=== PATIENT | female | born 1980 | race Caucasian/White ===

== ENCOUNTER 2024-04-30 11:10 | Outpatient (REF) | payer MEDICAID, SELFPAY ==
[2024-04-30 14:08] LABS: MANUAL DIFF FLAG NO
[2024-04-30 14:18] LABS: Basophils Percent Auto 0.3 % (0-2); Eosinophils Absolute Auto 0.2 X10*3/uL (0.0-0.4); Eosinophils Percent Auto 2.6 % (0-4); Hematocrit 44.1 % (37.0-47.0); Hemoglobin 15.5 g/dl (12.0-16.0); Imm Gran Abs Auto 0.03 X10*3/uL (0.00-0.03); Imm Gran Pct Auto 0.3 % (0.0-0.4); Lymphocytes Absolute Auto 2.8 X10*3/uL (1.2-4.9); Lymphocytes Percent Auto 31.6 % (20-40); Mean Corpuscular HGB Conc 35.1 g/dl (31.0-35.0); Mean Corpuscular Hemoglobin 32.4 pg (27.0-33.0); Mean Corpuscular Volume 92.1 fL (80.0-98.0); Mean Platelet Volume 9.7 fL (9.4-12.3); Monocytes Absolute Auto 0.5 X10*3/uL (0.1-1.2); Monocytes Percent Auto 5.5 % (2-11); Neutrophils Absolute Auto 5.3 x10*3/uL (2.0-8.3); Neutrophils Percent Auto 59.7 % (45-73); Platelet Count 310 X10*3/uL (160-400); Red Blood Count 4.79 X10*6/uL (4.20-5.50); White Blood Count 8.8 X10*3/uL (4.8-10.8)
[2024-04-30 14:26] LABS: Estimated Average Glucose 97 mg/dL; Hemoglobin A1C 127.3311 umol/L; Total Hemoglobin (HGBA1C) 4026.2945 umol/L
[2024-04-30 14:35] LABS: Alanine Aminotransferase 46 U/L (0-31); Albumin Level 3.9 g/dL (3.5-5.0); Alkaline Phosphatase 96 U/L (39-117); Anion Gap 11 (12-20); Aspartate Amino Transferase 31 U/L (5-31); Bilirubin Direct 0.3 mg/dL (0.0-0.5); Bilirubin Total 0.5 mg/dL (0.0-1.0); Blood Urea Nitrogen 11 mg/dL (9-16); Calcium 9.6 mg/dL (8.4-10.2); Carbon Dioxide 32 mmol/L (22-29); Chloride 103 mmol/L (96-108); Cholesterol 228 mg/dL (<200); Estimated Glomerular Filt Rate > 60; Glucose Fasting 92 mg/dL (60-99); HDL Cholesterol 47 mg/dL (>40); LDL Cholesterol Calculated 126 mg/dL (<100); Sodium 142 mmol/L (135-145); Total Protein 6.7 g/dL (6.5-8.0); Triglycerides 275 mg/dL (<150)
[2024-04-30 14:52] LABS: TSH reflex Free T4 1.52 uIU/mL (0.32-4.0); Vitamin D 25-OH Total 93.3 ng/mL (>30)
[2024-05-01 04:35] LABS: HIV AB/AG Nonreactive (Nonreactive); HIV Num 1 0.05 S/CO (0.00-0.99); ~HepC Num1 0.07 S/CO (0.00-0.79); ~Hepatitis C Antibody Nonreactive (Nonreactive)
[2024-05-01 07:17] LABS: CT PCR NOT DETECTED (Not Detect.); NG PCR NOT DETECTED (Not Detect.)
== END 2024-04-30 11:11 | disposition home or self-care (01) ==
LOC: HO.CHCLDS 11:10
PROVIDERS: Visit Provider Pediatrics
DX: Z71.3 Dietary counseling and surveillance (principal); Z71.82 Exercise counseling; Z23 Encounter for immunization; E66.813 Obesity, class 3; Z68.43 Body mass index [BMI] 50.0-59.9, adult; E66.01 Morbid (severe) obesity due to excess calories; E55.9 Vitamin D deficiency, unspecified
CPT/HCPCS: 36415; 80048; 80061; 80076; 82306; 83036; 84443; 85025; 86803; 87389; 87491; 87591

== ENCOUNTER 2024-05-29 17:38 | Outpatient (REF) | payer MEDICAID, SELFPAY ==
[2024-05-30 10:43] LABS: HPV 16,18/45 See PAP report
== END 2024-05-29 17:39 | disposition home or self-care (01) ==
LOC: HO.CHCLNP 17:38
PROVIDERS: Visit Provider Pediatrics
DX: Z01.419 Encounter for gynecological examination (general) (routine) without abnormal findings (principal)
CPT/HCPCS: 87624; 88175

== ENCOUNTER 2024-07-08 10:01 | Outpatient (REF) | payer MEDICAID, SELFPAY ==
--- OUTSIDE RECORDS SUMMARY | 2024-07-08 10:46 | XMS_ITS | Encounter Summary ---
Author Organization [employer] Address [address] [place] [address] Care Team Providers Care Horseshoer Name Role Phone Nanette Neumann MD Primary Care Provider [phone] Encounter Details Date Type Department Care Team (Latest Contact Info) Description 07/08/2024 Travel Social History Tobacco Use Types Packs/Day Years Used Date Smoking Tobacco: Never Passive Smoke Exposure: Never Smokeless Tobacco: Never Depression Answer Date Recorded Patient Health Questionnaire-9 Score 0 07/08/2024 Patient Health Questionnaire-9 Score 0 07/08/2024 Last PHQ-9: Questionnaire Data Not on file 0 07/08/2024 Housing Stability Answer Date Recorded What is your housing situation today? I have holden burch 04/30/[address] you li ve. Do you have problems with any of the following? None of the above 04/30/2024 Food Insecurity Answer Date Recorded Within the past 12 months, y ou worried that your food would run out before you got money to buy more: Never True 04/30/2024 Within the past 12 months,th e food you bought just didn't last and you didn't have enough money to get more: Never True Transportation Answer Date Recorded In the past 12 months, has l ack of transportation kept you from medical appts, meetings, work or from getting things needed for daily living? No 04/30/2024 Utilities Answer Date Recorded In the past 12 months, has t he electric, gas, oil or water company threatened to shut off services in your home? No 04/30/2024 Depression Answer Date Recorded Patient Health Questionnaire-2 Score 0 07/08/2024 Internet Access Answer Date Recorded Internet Access Q1 Yes 04/30/2024 Internet Access Q2 Not on file 04/30/2024 Comments Unknown Sex and Gender Information Value Date Recorded Sex Assigned at Female 04/10/2022 10:14 AM EDT Legal Sex Female 10:14 AM EDT Gender Identity Female 04/10/2022 10:14 AM EDT Sexual Orientation Straight 04/10/2022 10 :14 AM EDT documented as of this encounter Plan of Treatment Not on file documented as of this encounter Visit Diagnoses Not on filedocumented in this encounter Additional Health Concerns Assessment Noted Time PHQ-9 Depression Total Score: 0 07/08/19 25 9:43 AM EST documented as of this encounter Care Teams Horseshoer Relationship Specialty Start Date End Date Nanette Neumann MD [address] [place] [address] PCP - General Family Medicine 06/11/18 documented as of this encounter
--- OUTSIDE RECORDS SUMMARY | 2024-07-08 10:46 | XMS_ITS | Encounter Summary ---
Author Organization [employer] Address [address] [facility] 7t [place] [address] Care Team Providers Care Word Processor Name Role Phone Nanette Neumann MD Primary Care Provider [phone] Encounter Details Date Type Department Care Team ([facility] st Contact Info) Description 07/08/2024 9:15 AM EST Office Visit 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 (CMS/HCC); Mild persistent asthma without complication; Hypertriglyceridemia; Screening for colon cancer; Colon cancer screening Social History Tobacco Use Types Packs/Day Years [...] AM EDT documented as of this encounter Last Filed Vital Signs Vital Sign Reading Time Taken Comments Blood Pressure 136/70 07/08/2024 9:16 AM EST Pulse 72 07/08/2024 9:16 AM EST Temperature 36.2 ??C (97.2 ??F) 07/08/2024 9:16 AM ES T Respiratory Rate 20 07/08/2024 9:16 AM EST Oxygen Saturation - - Inhaled Oxygen Concentration - - Weight 118 kg (260 lb) 07/08/2024 9:16 AM EST Height 152.4 cm (5') 07/08/2024 9:16 AM EST Body Mass Index 50.78 07/08/2024 9:16 AM EST documented in this encounter Progress Notes * Nanette Neumann MD - 07/08/2024 9:15 AM EST Subjective Patient ID: Federica Hansen is a 44 y.o. female who presents for a PE. Federica is a 44-year-old patient of mine here for her annual physical exam. She works at [employer].Needs a TB test, as well as a work PA note and MMR titers. She just had her WILDLIFE BIOLOGIST exam visit with me in April of last year which was normal. She is currently perimenopausal with minimal symptoms. Her last period was 2 months ago. Currently on no control as she does not have a partner. Does not have any new complaints today except for acute left great toe swelling and pain similar to her episode in April in 2022 where she was seen at [facility] urgent care and treated for acute gout withIndocin as needed. Patient states has been on a low purine diet as much as possible. History provided by: Patient packing and stamping machine operator used: No Review of Systems Constitutional: Negative for activity change, chills, fever and unexpected weight change. Respiratory: Negative for cough, shortness of breath and wheezing. Cardiovascular: Negative for chest pain, palpitations and leg swelling. Gastrointestinal: Negative for abdominal pain and blood in stool. Endocrine: Negative for polydipsia and polyuria. Genitourinary: Negative for decreased urine volume, difficulty urinating, dysuria and hematuria. Musculoskeletal: Positive for joint swelling. Negative for arthralgias and gait problem. Skin: Negative for color change and rash. Neurological: Negative for dizziness and headaches. Hematological: Negative for adenopathy. Psychiatric/Behavioral: Negative for dysphoric mood, hallucinations, sleep disturbance and suicidalideas. The patient is not nervous/anxious. Objective BP 136/70 (BP Location: Left arm, Patient Position: Sitting, BP Cuff Size: Thigh) Pulse72 Temp 97.2 ??F (36.2 ??C) (Oral) Resp 20 Ht 5' (1.524 m) Wt 260 lb (118 kg) LMP 04/14/2024 (Exact Date) BMI 50.78 kg/m?? Physical Exam Vitals reviewed. Constitutional: General: She is not in acute distress. Appearance: Normal appearance. She is not ill-appearing. HENT: Head: Normocephalic. Right Ear: Tympanic membrane and ear canal normal. Left Ear: Tympanic membrane and ear canal normal. Nose: Nose normal. Mouth/Throat: Mouth: Mucous membranes are moist. Pharynx: No oropharyngeal exudate or posterior oropharyngeal erythema. Eyes: Extraocular Movements: Extraocular movements intact. Conjunctiva/sclera: Conjunctivae normal. Pupils: Pupils are equal, round, and reactive to light. Cardiovascular: Rate and Rhythm: Normal rate and regular rhythm. Pulses: Normal pulses. Heart sounds: Normal heart sounds. Pulmonary: Effort: Pulmonary effort is normal. No respiratory distress. Breath sounds: Normal breath sounds. Abdominal: General: There is distension. Palpations: Abdomen is soft. Tenderness: There is no abdominal tenderness. Musculoskeletal: General: Normal range of motion. Cervical back: Normal range of motion. Comments: Left base great toe tenderness, exquisite Skin: General: Skin is warm. Capillary Refill: Capillary refill takes less than 2 seconds. Findings: No erythema or rash. Neurological: General: No focal deficit present. Mental Status: She is alert and oriented to person, place, and time. Psychiatric: Mood and Affect: Mood normal. Behavior: Behavior normal. Thought Content: Thought content normal. Judgment: Judgment normal. Assessment/Plan Diagnoses and all orders for this visit: Great toe pain, left Comments: Suspect this is gout. Labs to check sed rate uric acid CRP CBC etc. today were ordered. Indocin as needed sent to pharmacy as well. Follow-up call will be Orders: - CBC auto differential; Future - C-reactive Protein; Future - Uric acid; Future - Sed Rate by Modified Westergren; Future - Rheumatoid Factor; Future Encounter for annual physical exam Comments: Her physical exam was done today, she is up-to-date with Pap smear, labs. We will check MMR titers and TB screen test as well today, mammo also up-to-date.Cologuard ordered. 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 Patient wants to hold off at this time, reassess at next visit in 3 months. Mild persistent asthma without complication Comments: Symptoms are very well-controlled on as needed albuterol mostly. The vaccines are up to date continue same treatment. Hypertriglyceridemia Comments: Will increase her fish oil to 1000 mg twice daily. Lipids were checked in April ASCVD risk is 1.9% Other orders - indomethacin (Indocin) 50 MG capsule; Take 1 capsule orally bid with food intake prn pain - omega-3 (fish oil) 1000 MG capsule; Take 1 capsule orally twice a day documented in this encounter Plan of Treatment Scheduled Orders Name Type Priority Associated Diagnoses Orde r Schedule CBC auto differential Lab Routine Great toe pain, left Expected: 07/08/2024 (Approximate), Expires: 07/08/2025 C-reactive Protein Lab Routine Great toe pain, left Expected: 07/08/2024 (Approximate), Expires: 07/08/2025 Uric acid Lab Routine Great toe pain, left Expected: 07/08/2024 (Approximate), Expires: 07/08/2025 Sed Rate by Modified Westergren Lab Routine Great toe pain, left Expected: 07/08/2024, Expires: 07/08/2025 Rheumatoid Factor Lab Routine Great toe pain, left Expected: 07/08/2024, Expires: 07/08/2025 T-SPOT??.TB Lab Routine Encounter for annual physical exam Expected: 07/08/2024 (Approximate), Expires: 07/08/2025 Measles, Mumps, and Rubella (MMR) Antibodies??(IgG) Panel, Immune Status Lab Routine Encounter for annual physical exam Expected: 07/08/2024 (Approximate), Expires: 07/08/2025 Cologuard?? 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
--- OUTSIDE RECORDS SUMMARY | 2024-07-08 10:46 | XMS_ITS | Encounter Summary ---
Author Organization [employer] Address [address] [facility] 7t [place] [address] Care Team Providers Care Java Websphere Developer Name Role Phone Nanette Neumann MD Primary Care Provider [phone] Reason for Visit * Reason Comments Med Refill Encounter Details Date Type Department Care Team ([facility] Contact Info) Description 06/09/2024 Refill [facility] CHC MED & PEDS [address] [place] [address] Nanette Neumann MD [address] [place] [address] Social History Tobacco Use Types Packs/Day Years Used Date Smoking Tobacco: Never Passive Smoke Exposure: Never Smokeless Tobacco: Never Depression Answer Date Recorded Patient Health Questionnaire-9 Score 0 04/30/2024 Patient Health Questionnaire-9 Score 0 04/30/2024 Last PHQ-9: Questionnaire Data Not on file 1 06/30/2023 Housing Stability Answer Date Recorded What is [...] Date Recorded Patient Health Questionnaire-2 Score 0 04/30/2024 Internet Access Answer Date Recorded Internet Access [...] Noted Time PHQ-9 Depression Total Score: 0 04/30/20 24 10:33 AM EST documented as of this encounter Care Teams Java Websphere Developer Relationship Specialty Start Date End Date Nanette Neumann MD [address] [place] [address] PCP - General Family Medicine 06/11/18 documented as of this encounter
--- OUTSIDE RECORDS SUMMARY | 2024-07-08 10:46 | XMS_ITS | Encounter Summary ---
Author Organization [employer] Address [address] [facility] 7t [place] [address] Care Team Providers Care Postal Carrier Name Role Phone Nanette Neumann MD Primary Care Provider [phone] Reason for Visit * Reason Comments Pre-visit Planning SDOH negative, Tobac co screening negative. Encounter Details Date Type Department Care Team ([facility] Contact Info) Description 07/01/2024 Patient Outreach [facility] CHC MED & PEDS [address] [place], [place] [phone] Nanette Neumann MD [address] [place] [address] Pre-visit Planning (SDOH negative, Tobacco screening negative.) Social History Tobacco Use Types Packs/Day Years [...] AM EDT documented as of this encounter Progress Notes * Alfreda Maldonado - 07/01/2024 10:45 AM EST CC Alfreda Zaldivar placed successful outbound call to patient for pre-visit planning. Patient name and confirmed. Patient confirms appt date and time, and has transportation arrangements. Biggest concern for appointment at this time is patient hasn't had her period in two months. Appropriate screenings completed in anticipation of appointment. documented in this encounter Plan of Treatment Not on file documented as of this encounter Visit Diagnoses Not on filedocumented in this encounter Additional Health Concerns Assessment Noted Time PHQ-9 Depression Total Score: 0 04/30/20 24 10:33 AM EST documented as of this encounter Care Teams Postal Carrier Relationship Specialty Start Date End Date Nanette Neumann MD [address] [place] [id number] PCP - General Family Medicine 06/11/18 documented as of this encounter
--- OUTSIDE RECORDS SUMMARY | 2024-07-08 10:46 | XMS_ITS | Encounter Summary ---
Author Organization [employer] Address [address] [facility] [address]t [place] [address] Care Team Providers Care Grid Maker Name Role Phone Nanette Neumann MD Primary Care Provider [phone] Encounter Details Date Type Department Care Team ([facility] Contact Info) Description 10/11/2023 Orders Only [facility] [address] [place] [address] ProviderRamón MD Social History Tobacco Use Types Packs/Day Years Used Date Smoking Tobacco: Never Smokeless Tobacco: Never Housing Stability Answer Date Recorded What is your housing situation today? I have holden burch 03/20/[address] you li ve. Do you have problems with any of the following? Mold 03/20/2023 Food Insecurity Answer Date Recorded Within the past 12 months, y ou worried that your food would run out before you got money to buy more: Never True 04/04/2023 Within the past 12 months,th e food you bought just didn't last and you didn't have enough money to get more: Never True Transportation Answer Date Recorded In the past 12 months, has l ack of transportation kept you from medical appts, meetings, work or from getting things needed for daily living? No 04/04/2023 Utilities Answer Date Recorded In the past 12 months, has t he electric, gas, oil or water company threatened to shut off services in your home? No 04/04/2023 Comments Unknown Sex and Gender Information Value Date Recorded Sex Assigned at Female 04/10/2022 10:14 AM EDT Legal Sex Female 10:14 AM EDT Gender Identity Female 04/10/2022 10:14 AM EDT Sexual Orientation Straight 04/10/2022 10 :14 AM EDT documented as of this encounter Plan of Treatment Not on file documented as of this encounter Procedures Procedure Name Priority Date/Time Associated Diagnosis Comments BI MAMMOGRAM SCREENING BILATERAL Routine 10/11/2023 11:40 AM EDT documented in this encounter Results * BI Mammogram Screening Bilateral (10/11/2023 11:40 AM EDT) Anatomical Region Laterality Modality Breast Bilateral Mammography us Historical Provider MD SALGADO BI PROCEDURES Final R esult documented in this encounter Visit Diagnoses Not on filedocumented in this encounter Care Teams Grid Maker Relationship Specialty Start Date End Date Nanette Neumann MD [address] [place] [id number] PCP - General Family Medicine 06/11/18 documented as of this encounter
--- OUTSIDE RECORDS SUMMARY | 2024-07-08 10:47 | XMS_ITS | Encounter Summary ---
Author Organization [employer] Address [address] [facility] 7t [place] [address] Care Team Providers Care Director Of Software Engineering Name Role Phone Nanette Neumann MD Primary Care Provider [phone] Reason for Visit * Reason Comments Med Change Request Encounter Details Date Type Department Care Team ([facility] Contact Info) Description 10/05/2022 Refill [facility] CHC MED & PEDS [address] [place], [place] [phone] Nanette Neumann MD [address] [place] [address] Social History Tobacco Use Types Packs/Day Years Used Date Smoking Tobacco: Never Smokeless Tobacco: Never Comments Unknown Sex and Gender Information Value Date Recorded Sex Assigned at Female 04/10/2022 10:14 AM EDT Legal Sex Female 10:14 AM EDT Gender Identity Female 04/10/2022 10:14 AM EDT Sexual Orientation Straight 04/10/2022 10 :14 AM EDT COVID-19 Exposure Response Date Recorded In the last 10 days, have yo u been in contact with someone who was confirmed or suspected to have Coronavirus/COVID-19? No / Unsure 09/28/2022 9:18 AM EDT documented as of this encounter Miscellaneous Notes * Telephone Encounter - Felicia Dallas RN - 10/06/2022 9:07 AM EDT TC placed to pt at [phone] to inform her of PCP's message: Please inform Federica ( speaks moldovan ) that her labs are WNL but her triglycerides ( one type ofcholesterol ) are high so I sent fish oil capsules twice a day to her pharmacy and her Vit D is lowso I added weekly vit d. Will recheck labs in 6 months.Needs to increase dairies in diet, fish as well, thanks. Pt verbalized understanding and will f/u PRN. documented in this encounter Plan of Treatment Not on file documented as of this encounter Visit Diagnoses Not on filedocumented in this encounter Care Teams Director Of Software Engineering Relationship Specialty Start Date End Date Nanette Neumann MD [address] [place] [id number] PCP - General Family Medicine 06/11/18 documented as of this encounter
--- OUTSIDE RECORDS SUMMARY | 2024-07-08 10:47 | XMS_ITS | Encounter Summary ---
Author Organization [employer] Address [address] [facility] 7t [place] [address] Care Team Providers Care New Business Clerk Name Role Phone Nanette Neumann MD Primary Care Provider [phone] Reason for Visit * Reason Onset Date Comments Referral 05/30/2024 Encounter Details Date Type Department Care Team ([facility] st Contact Info) Description 05/30/2024 Telephone [facility] MEDICINE [address] [place] [address] Nanette Neumann MD [address] [place] [address] Referral Social History Tobacco Use Types Packs/Day Years [...] encounter Miscellaneous Notes * Telephone Encounter - Janett Jeong [place] - 06/13/2024 2:20 PM EST Referral faxed to fax # provided. Confirmation ok. Sent to scan * Telephone Encounter - Solo Hansen - 05/30/2024 10:06 AM EST Tc from pt requesting referral for gastroenterology get FAXED over again to facility at this fax number [phone] since they never receive the fax. documented in this encounter Plan of Treatment Not on file documented as of this encounter Visit Diagnoses Not on filedocumented in this encounter Additional Health Concerns Assessment Noted Time PHQ-9 Depression Total Score: 0 04/30/20 24 10:33 AM EST documented as of this encounter Care Teams New Business Clerk Relationship Specialty Start Date End Date Nanette Neumann MD [address] [facility] [place] [address] PCP - General Family Medicine 06/11/18 documented as of this encounter
--- OUTSIDE RECORDS SUMMARY | 2024-07-08 10:47 | XMS_ITS | Encounter Summary ---
Author Organization [facility] Address [address] [facility] [address] [place] [address] Care Team Providers Care Vision Impaired Teacher Name Role Phone Nanette Neumann MD Primary Care Provider [phone] Encounter Details Date Type Department Care Team ([facility] st Contact Info) Description 07/10/2022 Orders Only [facility] MEDICINE [address] [place] [address] Abby Ahn LPN Social History Tobacco Use Types Packs/Day Years Used Date Smoking Tobacco: Never Assessed Comments Unknown Sex and Gender Information Value [...] on filedocumented in this encounter Care Teams Vision Impaired Teacher Relationship Specialty Start Date End Date Nanette Neumann MD [address] [place] [address] PCP - General Family Medicine 06/11/18 documented as of this encounter
--- OUTSIDE RECORDS SUMMARY | 2024-07-08 10:47 | XMS_ITS | Clinical Summary ---
Author Organization [employer] Address [address] [place] [address] [address] [place] [address] Care Team Providers Care Mail Technician Name Role Phone Nanette Neumann MD Primary Care Provider [phone] Allergies Active Allergy Reactions Criticality Noted Date Comments Piperonyl Butoxide Rash Low 02/01/2017 Pyrethrins Rash Low 02/01/2017 Medications Flovent HFA 110 MCG/ACT inhalerIndicatio ns:Mild persistent asthma without complication TAKE 1 PUFF BY MOUTH TWICE A DAY 36 g 3 3 Active fluticasone (Flovent HFA) 110 MCG/ACT inhaler inhale 1 puff by inhalation route 2 times every day 1 Active ProAir HFA 108 (90 Base) MCG/ACT inhaler INHALE 1 PUFF 4 TIMES A DAY NEEDED WHEEZING NEEDED 2 Active albuterol (2.5 MG/3ML) 0.083% nebulizer solution INHALE THE CONTENTS OF 1 VIAL VIA NEBULIZER 3 TIMES A DAY 2 Active cetirizine (ZyrTEC) 10 MG tablet TAKE 1 TABLET BY MOUTH EVERY MORNING 90 tablet 4 Active Blood Pressure kitIndications:C lass 3 severe obesity without serious comorbidity with body mass index (BMI) of 50.0 to 59.9 in adult, unspecified obesity type (CMS/HCC) Check BP daily as instructed 1 kit 4 Active indomethacin (Indocin) 50 MG capsule Take 1 capsule orally bid with food intake prn pain 30 capsule 5 Active omega-3 (fish oil) 1000 MG capsule Take 1 capsule orally twice a day 60 capsule 11 5 Active predniSONE (Deltasone) 20 MG tabletIndication s:Bronchitis Take 1 tab orally daily with food for 5 days 5 tablet 2 025 Discontin ued(Thera py completed ) pseudoephedrine (Sudafed) 30 MG tablet Take 1 tablet (30 mg) by mouth every 4 (four) hours if needed for congestion for up to 10 days. 30 tablet 4 025 Discontin ued(Thera py completed ) fish oil ([place]-3) 500 MG capsuleIndicatio ns:Dyslipidemia TAKE 1 CAPSULE BY MOUTH EVERY 12 hours 180 capsule 3 4 025 Discontin ued(Ineff ective) Tirzepatide-Weig ht Management (Zepbound) 2.5 MG/0.5ML solution auto-injector Inject 0.5 mL (2.5 mg) under the skin 1 (one) time per week. Do not start before June 11, 2024. 2 mL 1 5 025 Discontin ued(Cost of medicatio n) norgestimate-eth inyl estradiol (Ortho-Cyclen) 0.25-35 MG-MCG tablet TAKE 1 TABLET BY MOUTH EVERY DAY 28 tablet 10 4 025 Discontin ued(Thera py completed ) Active Problems Problem Noted Date Diagnosed Date Hypertriglyceridemia 07/08/2024 Induration of skin 01/25/2024 Assessment & Plan (01/25/2024 11:09 AM EDT): With surrounding cellulitis vs abscess, indurated area on 4 cm x 4.5 on the left upper breast at 10 o'clock, will send antibiotics if it forms into an abscess needs drainage. Discussed ED precautions with patient. Right ear pain 11/25/2023 Assessment & Plan (11/25/2023 8:01 PM EDT): Discussed with patient that I will prolong length of antibiotics and recommended f/up if no improvement of symptoms. Class 3 severe obesity witho ut serious comorbidity with body mass index (BMI) of 50.0 to 59.9 in adult 06/07/2022 Assessment & Plan (11/16/2023 12:27 PM EDT): Discussed calorie deficit, recommended reduction of 20-30% of maintenance calories; field support representative referral offered. Recommended to decrease soda and sugary beverage consumption. Recommended at least 20 g per meal of protein to assist with satiety. Recommended at least 150 min/week of moderate intensity exercise. Allergic rhinitis 10/11/2017 Mild persistent asthma without complication 11/10 Contact dermatitis 01/06/2011 Encounters Date Type Department Care Team Description 07/08/2024 9:15 AM EST Office Visit [facility] [address] [place] [address] Nanette Neumann MD Great toe pain, left (Primary Dx); Encounter for annual physical exam; Dietary counseling; Exercise counseling; Class 3 drug-induced obesity without serious comorbidity with body mass index (BMI) of 50.0 to 59.9 in adult ([facility]); Mild persistent asthma without complication; Hypertriglyceridemia; Screening for colon cancer; Colon cancer screening 07/08/2024 Travel 07/01/2024 Patient Outreach [facility] [address] [place] [phone] Nanette Neumann MD Pre-visit Planning (SDOH negative, Tobacco screening negative.) 06/09/2024 Refill [facility] [address] [place] [address] Nanette Neumann MD 05/30/2024 Telephone [facility] [address] [place] [address] Nanette Neumann MD Referral 05/29/2024 9:15 AM EST Procedure Visit [facility] [address] [place] [address] Nanette Neumann MD Encounter for gynecological examination with Papanicolaou smear of cervix (Primary Dx); Dyslipidemia; Class 3 drug-induced obesity without serious comorbidity with body mass index (BMI) of 50.0 to 59.9 in adult ([facility]/HCC) 05/29/2024 Travel 04/30/2024 10:15 AM EST Office Visit [facility] [address] [place] [address] Nanette Neumann MD Dietary counseling (Primary Dx); Exercise counseling; Encounter for immunization; Class 3 severe obesity without serious comorbidity with body mass index (BMI) of 50.0 to 59.9 in adult, unspecified obesity type (CMS/HCC); Vitamin D deficiency; Routine screening for STI (sexually transmitted infection); Colon cancer screening 04/30/2024 Telephone [facility] [address] [place] [address] [phone] Nanette Neumann MD 04/30/2024 Travel 2024 Telephone [facility] [address], [place] [phone] Nanette Neumann MD Chart Prep 04/21/2024 Refill [facility] [address], [place] [phone] Nanette Neumann MD from Last 3 Months Immunizations Name Administration Dates Next Due HPV 9-Valent 11/02/2021 Influenza Injectable Quadriv alant Preservative Free IIV4 MDCK 03/14/2022,04/26/2021 Influenza injectable quadriv alent IIV4 with preservative 04/08/2019,04/02/2018,03/14/2017,2014 Influenza injectable quadriv alent preservative free 05/14/2023 Influenza, Split (incl. hansa fied surface antigen) 06/24/2012 Influenza, seasonal, injecta ble, preservative free 04/30/2024 Tdap 02/21/2016 Social History Tobacco Use Types Packs/Day Years Used Date Smoking Tobacco: Never Passive Smoke Exposure: Never Smokeless Tobacco: Never Tobacco Cessation:Counseling Given: Not Answered Depression Answer Date Recorded Patient Health Questionnaire-9 [...] the past 12 months, has t he [email or web address], gas, oil or water company threatened to [...] Orientation Straight 04/10/2022 10 :14 AM EDT Last Filed Vital Signs Vital Sign Reading Time Taken Comments Blood Pressure 136/70 07/08/2024 9:16 AM EST Pulse 72 07/08/2024 9:16 AM EST Temperature 36.2 ??C (97.2 ??F) 07/08/2024 9:16 AM ES T Respiratory Rate 20 07/08/2024 9:16 AM EST Oxygen Saturation 98% 04/30/2024 10:16 AM EST Inhaled Oxygen Concentration - - Weight 118 kg (260 lb) 07/08/2024 9:16 AM EST Height 152.4 cm (5') 07/08/2024 9:16 AM EST Body Mass Index 50.78 07/08/2024 9:16 AM EST Plan of Treatment Health Maintenance Due Date Last Done Comments CT Colonography 1978 Colonoscopy 1978 Colorectal Cancer Screening 1978 FIT DNA/Cologuard 1978 FIT 1978 FOBT 1978 Sigmoidoscopy 1978 Pneumococcal Vaccine: Pediatrics (0 to 5 Years) and At-Risk Patients (6 to 64 Years) (1 of 2 - PCV) 1984 Family Planning (PISQ) 1993 Hepatitis B Vaccines (1 of 3 - 19+ 3-dose series) 1997 HPV Vaccines (2 - 3-dose SCDM series) 11/30/2021 11/02/2021 COVID-19 Vaccine (5 - season) 2024 05/23/2022, 05/25/2021, 11/13/2020, Additional history exists HPV/Cotest 04/08/2024 04/08/2019 Alcohol/Substance Use Screening 04/30/2025 04/30/2024 SDOH Screening 07/01/2025 07/01/2024 Depression Screening 07/08/2025 07/08/2024, 07/08/19 Tobacco Screening 07/08/2025 07/08/2024 Mammogram 10/10/2025 10/11/2023, 10/11/2023 DTaP/Tdap/Td Vaccines (2 - Td or Tdap) 02/20/2026 02/21/2016 Cervical Cancer Screening 05/29/2027 Pap Smear 05/29/2027 05/29/2024 Zoster Vaccines (1 of 2) 2028 Lipid Panel 04/30/2029 04/30/2024, 10/04/2022 RSV Patients and Patients Aged 60 years or older (1 - 1-dose 75+ series) 2053 HIV Screening Completed 04/30/2024 Hepatitis C Screening Completed 04/30/2024 Influenza Vaccine Completed 04/30/2024, , 03/14/2022, Additional history exists HIB Vaccines Aged Out No longer eligi ble based on patient's age to complete this topic Hepatitis A Vaccines Aged Out No long er eligible based on patient's age to complete this topic IPV Vaccines Aged Out No longer eligi ble based on patient's age to complete this topic Meningococcal Vaccine Aged Out No jerald trav eligible based on patient's age to complete this topic RSV under 20 months Aged Out No longe r eligible based on patient's age to complete this topic Rotavirus Vaccines Aged Out No longer eligible based on patient's age to complete this topic Procedures Procedure Name Priority Date/Time Associated Diagnosis Comments PAP SMEAR Routine 05/29/2024 9:35 AM EST Encounter for gynecological examination with Papanicolaou smear of cervix CHLAMYDIA/N. GONORRHOEAE RNA, TMA, UROGENITAL Routine 04/30/2024 11:20 AM EST Dietary counseling Exercise counseling Encounter for immunization Class 3 severe obesity without serious comorbidity with body mass index (BMI) of 50.0 to 59.9 in adult, unspecified obesity type (CMS/HCC) Vitamin D deficiency HEPATITIS C AB W/REFL TO HCV RNA, QN, PCR Routine 04/30/2024 11:15 AM EST Dietary counseling Exercise counseling Encounter for immunization Class 3 severe obesity without serious comorbidity with body mass index (BMI) of 50.0 to 59.9 in adult, unspecified obesity type (CMS/HCC) Vitamin D deficiency HIV 1/2 ANTIGEN/ANTIBODY, FOURTH GENERATION W/RFL Routine 04/30/2024 11:15 AM EST Dietary counseling Exercise counseling Encounter for immunization Class 3 severe obesity without serious comorbidity with body mass index (BMI) of 50.0 to 59.9 in adult, unspecified obesity type (CMS/HCC) Vitamin D deficiency LIPID PANEL, STANDARD Routine 04/30/2024 11:15 AM EST Dietary counseling Exercise counseling Encounter for immunization Class 3 severe obesity without serious comorbidity with body mass index (BMI) of 50.0 to 59.9 in adult, unspecified obesity type (CMS/HCC) Vitamin D deficiency TSH W/REFLEX TO FT4 Routine 04/30/2024 1 1:15 AM EST Dietary counseling Exercise counseling Encounter for immunization Class 3 severe obesity without serious comorbidity with body mass index (BMI) of 50.0 to 59.9 in adult, unspecified obesity type (CMS/HCC) Vitamin D deficiency VITAMIN D,25-OH,TOTAL,IA Routine 04/30/2024 11:15 AM EST Dietary counseling Exercise counseling Encounter for immunization Class 3 severe obesity without serious comorbidity with body mass index (BMI) of 50.0 to 59.9 in adult, unspecified obesity type (CMS/HCC) Vitamin D deficiency HEPATIC FUNCTION PANEL Routine 04/30/2024 11:15 AM EST Dietary counseling Exercise counseling Encounter for immunization Class 3 severe obesity without serious comorbidity with body mass index (BMI) of 50.0 to 59.9 in adult, unspecified obesity type (CMS/HCC) Vitamin D deficiency HEMOGLOBIN A1C Routine 04/30/2024 11:15 AM EST Dietary counseling Exercise counseling Encounter for immunization Class 3 severe obesity without serious comorbidity with body mass index (BMI) of 50.0 to 59.9 in adult, unspecified obesity type (CMS/HCC) Vitamin D deficiency CBC WITH AUTO DIFFERENTIAL Routine 04/30/2024 11:15 AM EST Dietary counseling Exercise counseling Encounter for immunization Class 3 severe obesity without serious comorbidity with body mass index (BMI) of 50.0 to 59.9 in adult, unspecified obesity type (CMS/HCC) Vitamin D deficiency BASIC METABOLIC PANEL, FASTING Routine 04/30/2024 11:15 AM EST Dietary counseling Exercise counseling Encounter for immunization Class 3 severe obesity without serious comorbidity with body mass index (BMI) of 50.0 to 59.9 in adult, unspecified obesity type (CMS/HCC) Vitamin D deficiency HM MAMMOGRAPHY Routine 10/11/2023 OlgaZZ HISTORICAL HPV MRNA E6/E7 Routine 04/08/2019 9:56 AM EDT from Last 3 Months or Most Recently Relevant to Health Maintenance Results * Pap Smear (05/29/2024 9:35 AM EST) Swab Cervical swab / Unknown 05/29/2024 9:35 AM EST 05/30/2024 9:40 AM EST [facility] - 06/03/2024 12:34 PM EST ----- ------- Name: Colon,Federica ?Age/Sex: 44/F ? : 1980 Unit#: [id number] ?? Attend Dr: Nanette Neumann MD ?Re05/29/24 ?Status: DEP REF ? Location: HO.CHCLNP ? Disch: ? ----- ------- SPEC : [id number] ?RECD: 05/30/24 ? STATUS: ??SOUT ? REQ NUM: [id number] ? PARKER: 05/29/24 ? SUBM DR: Nanette Neumann MD ? ENTERED: ??05/30/24 ?SP TYPE: Pap Smr ?OTHR : ? ORDERED: ??Pap Smear ? Interpretation ?? Satisfactory for evaluation. ?? Negative for intraepithelial lesion or malignancy. ?? No endocervical cells seen. ? HPV High Risk: ??Negative ? HPV Genotyping 16: ??Negative ?? HPV Genotyping 18: ??Negative ?Clinical Information LMP: 04/15/2024 Previous PAP test: Normal five years ago, abnormal ? Material Received ?? ThinPrep-Cervical ----- ------- Signed (signature on file) MERRY Dela Cruz (ASCP) 06/03/24 1234 ? ----- ------- ? END OF REPORT ? us Nanette Neumann MD LAB CYTOLOGY ORDERABLES Final Result [facility] [address] [place] [phone] * Chlamydia/N. Gonorrhoeae RNA, TMA, Urogenitial (04/30/2024 11:20 AM EST) CT PCR NOT DETECTED Not Detect. [facility] Comment:A not detected test result does not exclude the possibilityof infection because test results can be affected byimproper specimen collection, concurrent antibiotic therapy,or the number of organisms in the specimen which may bebelow the sensitivity of the test. As with many diagnostictests, results from the Xpert CT/NG assay should beinterpreted in conjunction with other laboratory andclinical data available to the clinician.Xpert CT/NG performance has not been evaluated in patientsless than 14 years of age. The assay should not be used forthe evaluationof suspected sexual abuse or for other medico-legalindications. Additional testing is recommended in anycircumstance when false positive or false negative resultscould lead to adverse medical, social or psychologicalconsequences. NG PCR NOT DETECTED Not Detect. [facility] Comment:A not detected test result does not exclude the possibilityof infection because test results can be affected byimproper specimen collection, concurrent antibiotic therapy,or the number of organisms in the specimen which may bebelow the sensitivity of the test. As with many diagnostictests, results from the Xpert CT/NG assay should beinterpreted in conjunction with other laboratory andclinical data available to the clinician.Xpert CT/NG performance has not been evaluated in patientsless than 14 years of age. The assay should not be used forthe evaluationof suspected sexual abuse or for other medico-legalindications. Additional testing is recommended in anycircumstance when false positive or false negative resultscould lead to adverse medical, social or psychologicalconsequences. Swab Vaginal structure / Unknown 04/30/2024 11:20 AM EST 04/30/2024 2:03 PM EST Narrative [facility] - 05/01/2024 7:17 AM EST Urine us Nanette Neumann MD LAB MICROBIOLOGY - GENERAL OR DERABLES Final Result [facility] [address] [place] [address] [phone] * (ABNORMAL) Basic Metabolic Panel, Fasting (04/30/2024 11:15 AM EST) Sodium 142 135 - 145 mmol/L [facility] Potassium 4.0 3.3 - 5.1 mmol/L [facility] Chloride 103 96 - 108 mmol/L [facility] Carbon Dioxide 32(H) 22 - 29 mmol/L [facility] Anion Gap 11(L) 12 - 20 [facility] Urea Nitrogen (BUN) 11 9 - 16 mg/dL [facility] Creatinine, Serum 0.63 0.5 - 1.4 mg/dL [facility] Estimated Glomerular Filt Rate >60 [facility] Comment:Chronic Kidney Disea se: Estimated GFR < 60 mL/min/1.33b7Vvmwgx Kidney Disease: Estimated GFR < 15 mL/min/1.73m2 Glucose Fasting 92 60 - 99 mg/dL [facility] Calcium 9.6 8.4 - 10.2 mg/dL [facility] Blood Venous blood specimen / Unknown 04/30/2024 11:15 AM EST 04/30/2024 2:02 PM EST us Nanette Neumann MD LAB BLOOD ORDERABLES Final Re sult [facility] [address] [place] [phone] * Vitamin D, 25-Hydroxy, Total, Immunoassay (04/30/2024 11:15 AM EST) Vitamin D 25-OH Total 93.3 >30 ng/mL [facility] Comment:Health Based Referen ce Values*< 20 ng/mL Sqzbiynnt62-36 ng/mL Insufficient> 30 ng/mL Sufficient*Miguel ISSA. N Engl J Med. 2007;357:266-280Care must be taken in interpreting Vitamin D results fromdifferent laboratories and methodologies. Published datademonstrated that results from patients undergoinghemodialysis may show a negative bias when tested withvarious automated 25-OH vitamin D assays when compared toLC-MS/MS.When testing samples from patients whose predominant form ofVitamin D is Vitamin D2, such as patients receiving VitaminD2 supplementation, results that are subtherapeutic shouldbe confirmed with another method such as LC-MS/MS. Blood Venous blood specimen / Unknown 04/30/2024 11:15 AM EST 04/30/2024 2:02 PM EST Nanette Neumann MD LAB BLOOD ORDERABLES Final Re sult Performing Organization Address [facility] Co de Phone Number [facility] [address] [place] [address] [phone] * TSH W/Reflex to FT4 (04/30/2024 11:15 AM EST) TSH reflex Free T4 1.52 0.32 - 4.0 uIU/mL [facility] Blood Venous blood specimen / Unknown 04/30/2024 11:15 AM EST 04/30/2024 2:02 PM EST Nanette Neumann MD LAB BLOOD ORDERABLES Final Re sult Performing Organization Address [facility] Co de Phone Number [facility] [address] [place] [address] [phone] * (ABNORMAL) CBC auto differential (04/30/2024 11:15 AM EST) White Blood Count 8.8 4.8 - 10.8 X10*3/uL [facility] Red Blood Count 4.79 4.20 - 5.50 X10*6/uL [facility] Hemoglobin 15.5 12.0 - 16.0 g/dl [facility] Hematocrit 44.1 37.0 - 47.0 % [facility] Mean Corpuscular Volume 92.1 80.0 - 98.0 fL [facility] Mean Corpuscular Hemoglobin 32.4 27.0 - 33.0 pg [facility] Mean Corpuscular HGB Conc 35.1(H) 31.0 - 35.0 g/dl [facility] Red Cell Distribution Width 12.0 11.0 - 16.0 % [facility] Platelet Count 310 160 - 400 X10*3/uL [facility] Mean Platelet Volume 9.7 9.4 - 12.3 fL [facility] Neutrophils Percent Auto 59.7 45 - 73 % [facility] Imm Gran Pct Auto 0.3 0.0 - 0.4 % [facility] Lymphocytes Percent Auto 31.6 20 - 40 % [facility] Monocytes Percent Auto 5.5 2 - 11 % [facility] Eosinophils Percent Auto 2.6 0 - 4 % [facility] Basophils Percent Auto 0.3 0 - 2 % [facility] NRBC Pct Auto 0.0 0.0 - 0.2 /100WBC [facility] Neutrophils Absolute Auto 5.3 2.0 - 8.3 x10*3/uL [facility] Imm Gran Abs Auto 0.03 0.00 - 0.03 X10*3/uL [facility] Lymphocytes Absolute Auto 2.8 1.2 - 4.9 X10*3/uL [facility] Monocytes Absolute Auto 0.5 0.1 - 1.2 X10*3/uL [facility] Eosinophils Absolute Auto 0.2 0.0 - 0.4 X10*3/uL [facility] Basophils Absolute Auto 0.0 0.0 - 0.2 X10*3/uL [facility] NRBC Abs Auto 0.000 0.0 - 0.012 X10*3/uL [facility] Blood Venous blood specimen / Unknown 04/30/2024 11:15 AM EST 04/30/2024 2:02 PM EST us Nanette Neumann MD LAB BLOOD ORDERABLES Final Re sult [facility] [address] [place] [phone] * Hepatitis C Antibody with Reflex to HCV, RNA, Quantitative, Real-Time PCR (04/30/2024 11:15 AM EST) [facility] Hepatitis C Antibody Nonreactive Nonreactive [facility] Comment:Antibodies to HCV no t detected; does not exclude early acuteHCV infection. Blood Venous blood specimen / Unknown 04/30/2024 11:15 AM EST 04/30/2024 2:02 PM EST Nanette Neumann MD LAB BLOOD ORDERABLES Final Re sult Performing Organization Address City/[facility]/ZIP Co de Phone Number [facility] [address] [place] [phone] * HIV-1/2 Antigen and Antibodies, Fourth Generation, with Reflexes (04/30/2024 11:15 AM EST) [facility] HIV AB/AG Nonreactive Nonreactive [facility] Comment:HIV-1 p24 Ag and/or HIV-1/HIV-2 Ab not detected.A test result that is nonreactive does not exclude thepossibility of exposure to or infection with HIV-1 and/orHIV-2. Nonreactive results in this assay for individualswith prior exposure to HIV-1 and/or HIV-2 may be due toantigen and antibody levels that are below the limit ofdetection of this assay.The [employer] HIV Ag/Ab Combo assay result andsupplemental assay results should be interpreted inconjunction with the patient's clinical presentation,history and other laboratory results. If the results areinconsistent with clinical evidence, additional testing issuggested to confirm the result. Blood Venous blood specimen / Unknown 04/30/2024 11:15 AM EST 04/30/2024 2:02 PM EST Nanette Neumann MD LAB BLOOD ORDERABLES Final Re sult Performing Organization Address City/[facility]/ZIP Co de Phone Number [facility] [address] [place] [phone] * Hemoglobin A1c (04/30/2024 11:15 AM EST) [facility] Hemoglobin A1c 5.0 <6.0 % [facility] Comment:Hemoglobin A1C Refer ence Range Adults: 4.8 - 6.0 % Non diabetic: < 6.0 % Goal: < 7.0 %Additional Action Suggested: > 8.0 %Note: Hemoglobin A1c results are invalid for patients with abnormal amounts of HbF. Blood transfusions may impact the HbA1c concentration in the patient sample. Estimated Average Glucose 97 mg/dL [facility] Comment:eAG = Estimated ave rage glucose which is %A1C expressed asaverage glucose, using the formula of the B1T-NbqgrobBaawlej Glucose study (ADAG), Diabetes Care, Vol.31,#8,2007 Blood Venous blood specimen / Unknown 04/30/2024 11:15 AM EST 04/30/2024 2:02 PM EST us Nanette Neumann MD LAB BLOOD ORDERABLES Final Re sult Performing Organization Address [facility] Co de Phone Number [facility] [address] [place] [address] [phone] * (ABNORMAL) Hepatic Function Panel (04/30/2024 11:15 AM EST) Bilirubin, Total 0.5 0.0 - 1.0 mg/dL [facility] Bilirubin, Direct 0.3 0.0 - 0.5 mg/dL [facility] Aspartate Amino Transferase 31 5 - 31 U/L [facility] Alanine Aminotransferase 46(H) 0 - 31 U/L [facility] Total Protein 6.7 6.5 - 8.0 g/dL [facility] Albumin Level 3.9 3.5 - 5.0 g/dL [facility] Alkaline Phosphatase 96 39 - 117 U/L [facility] Blood Venous blood specimen / Unknown 04/30/2024 11:15 AM EST 04/30/2024 2:02 PM EST us Nanette Neumann MD LAB BLOOD ORDERABLES Final Re sult Performing Organization Address [facility] Co de Phone Number [facility] [address] [place] [address] [phone] * (ABNORMAL) Lipid Panel, Standard (04/30/2024 11:15 AM EST) Triglycerides 275(H) <150 mg/dL [facility] Comment:Desirable Triglyceri de: less than 150 mg/dLBorderline High Triglyceride 150-199 mg/dLHigh Triglyceride: 200-499 mg/dLVery High Triglyceride: greater than or equal to 5OO mg/dL Cholesterol 228(H) <200 mg/dL [facility] Comment:Desirable Cholestero l: less than 200 mg/dLBorderline High Cholesterol: 200-239 mg/dLHigh Cholesterol: greater than 239 mg/dL LDL Cholesterol Calculated 126(H) <100 mg/dL [facility] Comment:Desirable LDL: less than 100 mg/dLNear Optimal/Above Optimal LDL: 110- 129 mg/dLBorderline High LDL: 130-159 mg/dLHigh LDL: 160-189 mg/dLVery High LDL: greater than or equal to 190 mg/dL HDL Cholesterol 47 >40 mg/dL [facility] Comment:Desirable HDL: great er than 40 mg/dL Note: This HDL assay may give artificially low results in patients with liver disease. Blood Venous blood specimen / Unknown 04/30/2024 11:15 AM EST 04/30/2024 2:02 PM EST us Nanette Neumann MD LAB BLOOD ORDERABLES Final Re sult [facility] [address] [place] [address] [phone] * Mammography (10/11/2023) Pathologist [facility] Mammogram Normal Normal, Abnormal, BIRADS 1 , BIRADS 2 Anatomical Region Laterality Modality Other us Nanette Neumann MD HEALTH MAINTENANCE Final Resu lt * HPV mRNA E6/E7 (04/08/2019 9:56 AM EDT) Pathologist [facility] HPV mRNA E6/E7 Not Detected NOT DETECTED [facility] Comment: This test was performed using the APTIMA(R) HPV Assay ([employer] This assay detects E6/E7 viral messenger RNA (mRNA) from 14 high-risk HPV types (16,18,31,33,35,39,45,51, 52,56,58,59,66,68). For additional information please refer to: http://education.[employer]/faq/TIW271c9 (This link is being provided for informational/ educational purposes only.) The analytical performance characteristics of this assay have been determined by [employer] [place], [place]. The modifications have not been cleared or approved by the FDA. This assay has been validated pursuant to the CLIA regulations and is used for clinical purposes. Test Performed by [facility], [facility], [address] [place] [address] Ru Wilson M.D., Ph.D., Director of Laboratories , CLIA [id number] Please note: ??Effective 02/21/2016, HPV testing will be performed using [employer]'s APTIMA test which targets mRNA. Detecting mRNA instead of DNA, as in older methods, offers significant improvements in specificity. 04/08/2019 9:56 AM EDT us Nanette Neumann MD HISTORICAL/NON ORDERABLE LABS Final Result [facility] Anywhere [address] from Last 3 Months or Most Recently Relevant to Health Maintenance Insurance C3 Care Teams Mail Technician Relationship Specialty Start Date End Date Nanette Neumann MD [address] [place] [id number] PCP - General Family Medicine 06/11/18
--- OUTSIDE RECORDS SUMMARY | 2024-07-08 10:47 | XMS_ITS | Encounter Summary ---
Author Organization [employer] Address [address] [facility] [address] [place] [address] Care Team Providers Care Veterans Contact Representative Name Role Phone Nanette Neumann MD Primary Care Provider [phone] Reason for Visit * Reason Onset Date Comments Referral 12/06/2023 Encounter Details Date Type Department Care Team ([facility] Contact Info) Description 12/06/2023 Telephone [facility] MED & PEDS [address] [place], [place] [phone] Nanette Neumann MD [address] [place] [address] Referral Social History Tobacco Use Types Packs/Day Years Used Date Smoking Tobacco: Never Passive Smoke Exposure: Never Smokeless Tobacco: Never Housing Stability Answer [...] encounter Miscellaneous Notes * Telephone Encounter - Amee Brand - 12/06/2023 2:06 PM EDT Tc from states received a call from AT and was advised will need referral to be changed to physical therapy due to office not doing occupational therapy. documented in this encounter Plan of Treatment Not on file documented as of this encounter Visit Diagnoses Not on filedocumented in this encounter Care Teams Veterans Contact Representative Relationship Specialty Start Date End Date Nanette Neumann MD [address] [place] [phone] PCP - General Family Medicine 06/11/18 documented as of this encounter
--- OUTSIDE RECORDS SUMMARY | 2024-07-08 10:47 | XMS_ITS | Encounter Summary ---
Author Organization [employer] Address [address] [facility] [address] 7[address] [place] [address] Care Team Providers Care Gyn Name Role Phone Nanette Neumann MD Primary Care Provider [phone] Encounter Details Date Type Department Care Team ([facility] st Contact Info) Description 10/04/2022 Telephone [facility] [address] [place] [address] Nanette Neumann MD [address] [place] [address] Social History Tobacco Use Types Packs/Day Years Used Date Smoking Tobacco: Never Smokeless Tobacco: Never Depression Answer Date Recorded Patient Health Questionnaire-9 Score 0 04/30/2024 Patient Health Questionnaire-9 Score 0 04/30/2024 Last PHQ-9: Questionnaire Data Not on file 1 06/30/2023 Housing Stability Answer Date Recorded What is your housing situation today? I have holdenrayshawn burch 04/30/[address] you [...] encounter Miscellaneous Notes * Telephone Encounter - Chelsi García - 10/04/2022 10:50 AM EDT Tc from [facility] dept stating they received order for carpel tunnel however states [facility] officehas to contact centralized scheduling to book appt due to needing order information. Gave # [phone] OPT 2. documented in this encounter Plan of Treatment Not on file documented as of this encounter Visit Diagnoses Not on filedocumented in this encounter Care Teams Gyn Relationship Specialty Start Date End Date Nanette Neumann MD [address] [place] [phone] PCP - General Family Medicine 06/11/18 documented as of this encounter
--- OUTSIDE RECORDS SUMMARY | 2024-07-08 10:47 | XMS_ITS | Encounter Summary ---
Author Organization [employer] Address [address] [facility] 7t [place] [address] Care Team Providers Care Junior Automation Engineer Name Role Phone Nanette Neumann MD Primary Care Provider [phone] Encounter Details Date Type Department Care Team ([facility] st Contact Info) Description 10/03/2022 Orders Only [facility] MED & PEDS [address] [place], [place] [phone] Carrillo Desir MD [address] [place] [address] Carpal tunnel syndrome of right wrist (Primary Dx) Social History Tobacco Use Types Packs/Day Years [...] as of this encounter Progress Notes * Carrillo Desir MD - 10/03/2022 4:32 PM EDT error documented in this encounter Plan of Treatment Not on file documented as of this encounter Visit Diagnoses Diagnosis Carpal tunnel syndrome of right wrist- Primary documented in this encounter Care Teams Junior Automation Engineer Relationship Specialty Start Date End Date Nanette Neumann MD [address] [place] [phone] PCP - General Family Medicine 06/11/18 documented as of this encounter
--- OUTSIDE RECORDS SUMMARY | 2024-07-08 10:48 | XMS_ITS | Clinical Summary ---
Author Organization [employer] [facility] ity Address [address] [place] [address] Care Team Providers Care Portrait Painter Name Role Phone Unavailable Primary Care Provider Unavailabl e Social History Tobacco Use Types Packs/Day Years Used Date Smoking Tobacco: Never Assessed Sex and Gender Information Value Date Recorded Sex Assigned at Not on file Gender Identity Not on file Sexual Orientation Not on file Plan of Treatment Health Maintenance Due Date Last Done Comments Breast Cancer Screening 1978 DTaP,Tdap,and Td Vaccines (1 - Tdap) 1997 Hepatitis B Vaccines (1 of 3 - 19+ 3-dose series) 1997 Cervical Cancer Screening: P ap Smear 1999 COVID-19 Vaccine (2023-2 5 season) 2024 Influenza Vaccine (#1) 2024 HIB Vaccines Aged Out No longer eligi ble based on patient's age to complete this topic HPV Vaccines Aged Out No longer eligi ble based on patient's age to complete this topic Hepatitis A Vaccines Aged Out No long er eligible based on patient's age to complete this topic IPV Vaccines Aged Out No longer eligi ble based on patient's age to complete this topic MMR Vaccines Aged Out No longer eligi ble based on patient's age to complete this topic Meningococcal ACWY Vaccine Aged Out N o longer eligible based on patient's age to complete this topic Pneumococcal Vaccine: Pediat rics (0 to 5 Years) and At-Risk Patients (6 to 64 Years) Aged Out No longer eligible b ased on patient's age to complete this topic RSV Immunization Patients Un lexy 20 months Aged Out No longer eligible b ased on patient's age to complete this topic Varicella Vaccines Aged Out No longer eligible based on patient's age to complete this topic
--- OUTSIDE RECORDS SUMMARY | 2024-07-08 10:48 | XMS_ITS | Encounter Summary ---
Author Organization [employer] [facility] Address [address] [place] [address] 7 [place] [address] Care Team Providers Care College Or University Registrar Name Role Phone Nanette Neumann MD Primary Care Provider [phone] Reason for Visit * Reason Comments Med Refill Encounter Details Date Type Department Care Team ([facility] st Contact Info) Description 01/13/2023 Refill [facility] MED & PEDS [address] [place] [address] Nanette Neumann MD [address] [place] [address] Social History Tobacco Use Types Packs/Day Years [...] on filedocumented in this encounter Care Teams College Or University Registrar Relationship Specialty Start Date End Date Nanette Neumann MD [address] [place] [address] PCP - General Family Medicine 06/11/18 documented as of this encounter
--- OUTSIDE RECORDS SUMMARY | 2024-07-08 10:48 | XMS_ITS | Encounter Summary ---
Author Organization [employer] Address [address] [facility] [address] [place] [address] Care Team Providers Care Outbound Sales Executive Name Role Phone Nanette Neumann MD Primary Care Provider Reason for Visit * Reason Onset Date Comments Med Refill 04/04/2023 Encounter Details Date Type Department Care Team ([facility] st Contact Info) Description 04/04/2023 Refill [facility] PEDS [address] [place] [address] Ester Rivera MD [address] [place] [address] Social History Tobacco Use Types Packs/Day Years Used Date Smoking Tobacco: Never Smokeless Tobacco: Never Housing Stability Answer Date Recorded What is your housing situation today? I have holdenrayshawn burch 03/20/[address] you [...] on filedocumented in this encounter Care Teams Outbound Sales Executive Relationship Specialty Start Date End Date Nanette Neumann MD [address] [place] [phone] PCP - General Family Medicine 06/11/18 documented as of this encounter
--- OUTSIDE RECORDS SUMMARY | 2024-07-08 10:48 | XMS_ITS | Encounter Summary ---
Author Organization [employer] Address [address] [facility] 7 [place] [address] Care Team Providers Care Staff Air Defense Officer Name Role Phone Nanette Neumann MD Primary Care Provider [phone] Reason for Visit * Reason Onset Date Comments Med Refill 04/25/2023 Encounter Details Date Type Department Care Team ([facility] st Contact Info) Description 04/25/2023 Telephone [facility] CH[facility] MED & PEDS [address] [place], [place] [phone] Nanette Neumann MD [address] [place] [address] Med Refill Social History Tobacco Use Types Packs/Day Years [...] * Telephone Encounter - Amee Brand - 04/25/2023 9:31 AM EST Tc from pt requesting medication refill on cetirizine (ZyrTEC) 10 MG tablet and cholecalciferol (Vitamin D-3) 250 MCG (65202 UT) capsule to be sent to [facility] - [place], [place] - [address] documented in this encounter Plan of Treatment Not on file documented as of this encounter Visit Diagnoses Not on filedocumented in this encounter Care Teams Staff Air Defense Officer Relationship Specialty Start Date End Date Nanette Neumann MD [address] [place] [phone] PCP - General Family Medicine 06/11/18 documented as of this encounter
--- OUTSIDE RECORDS SUMMARY | 2024-07-08 10:48 | XMS_ITS | Encounter Summary ---
Author Organization [employer] Address [address] [facility] 7t [place] [address] Care Team Providers Care Freight Sales Broker Name Role Phone Nanette Neumann MD Primary Care Provider [phone] Reason for Visit * Reason Onset Date Comments Med Refill 04/16/2023 Encounter Details Date Type Department Care Team ([facility] st Contact Info) Description 04/16/2023 Refill [facility] MED & PEDS [address] [place], [place] [phone] Nanette Neumann MD [address] [place] [address] Social History Tobacco Use Types Packs/Day Years [...] encounter Miscellaneous Notes * Telephone Encounter - Nanette Neumann MD - 04/16/2023 1:23 PM EST Please inform patient that I ordered a new lab order to check her vitamin D level , can get it drawn at [facility]. If needed , then will refill vit D again.Thanks documented in this encounter Plan of Treatment Not on file documented as of this encounter Visit Diagnoses Not on filedocumented in this encounter Care Teams Freight Sales Broker Relationship Specialty Start Date End Date Nanette Neumann MD [address] [place] [phone] PCP - General Family Medicine 06/11/18 documented as of this encounter
[2024-07-08 14:05] LABS: MANUAL DIFF FLAG NO
[2024-07-08 14:16] LABS: Basophils Percent Auto 0.3 % (0-2); Eosinophils Absolute Auto 0.2 X10*3/uL (0.0-0.4); Eosinophils Percent Auto 2.4 % (0-4); Hemoglobin 15.1 g/dl (12.0-16.0); Imm Gran Abs Auto 0.04 X10*3/uL (0.00-0.03); Imm Gran Pct Auto 0.4 % (0.0-0.4); Lymphocytes Absolute Auto 2.6 X10*3/uL (1.2-4.9); Lymphocytes Percent Auto 26.8 % (20-40); Mean Corpuscular HGB Conc 34.3 g/dl (31.0-35.0); Mean Corpuscular Hemoglobin 32.2 pg (27.0-33.0); Mean Corpuscular Volume 93.8 fL (80.0-98.0); Monocytes Absolute Auto 0.6 X10*3/uL (0.1-1.2); Monocytes Percent Auto 6.5 % (2-11); Neutrophils Absolute Auto 6.2 x10*3/uL (2.0-8.3); Neutrophils Percent Auto 63.6 % (45-73); Platelet Count 289 X10*3/uL (160-400); Red Blood Count 4.69 X10*6/uL (4.20-5.50); Red Cell Distribution Width 12.9 % (11.0-16.0); White Blood Count 9.7 X10*3/uL (4.8-10.8)
[2024-07-08 14:37] LABS: Rheumatoid Factor < 13.0 IU/mL (<15.0)
[2024-07-08 14:38] LABS: Uric Acid 8.1 mg/dL (2.4-5.7)
[2024-07-08 14:57] LABS: Erythrocyte Sedimentation Rate 14 MM/HR (0-20)
[2024-07-09 17:23] LABS: Rubella IgG Antibody 1.49 Index; Rubeola IgG (Measles) <13.50 AU/mL
[2024-07-11 09:58] LABS: TS Negative Control Passed; TS Panel A 0; TS Panel B 0; TS Positive Control Passed; TSpotTB Negative (Negative)
== END 2024-07-08 10:02 | disposition home or self-care (01) ==
LOC: HO.CHCLDS 10:01
PROVIDERS: Visit Provider Pediatrics
DX: Z00.00 Encounter for general adult medical examination without abnormal findings (principal); M79.675 Pain in left toe(s)
CPT/HCPCS: 36415; 84550; 85025; 85652; 86140; 86431; 86481; 86735; 86762; 86765